=== PATIENT | female | born 1970 | race Two or more races ===

== ENCOUNTER 2024-07-05 09:19 | Emergency (ER) | payer OTHER ==
[~2024-07-05] VITALS: Ht 165.1 cm; Wt 104.4 kg
[2024-07-05 09:41] VITALS: BP 154/80; PULSE 70; RESP 20; TEMP 97; O2SAT 97
--- NOTE | 2024-07-05 09:46 | ED.PDOC ---
General HPI Comments A 54 YEAR OLD FEMALE PRESENTS TO THE ED WITH COMPLAINT OF RIGHT FLANK PAIN. PATIENT STATES SHE HAS BEEN EXPERIENCING RIGHT-SIDED FLANK PAIN THAT RADIATES TO HER RIGHT MIDDLE ABDOMEN OFF AND ON FOR THE PAST 1 YEAR, BUT NOTES IT STARTED AGAIN OVER THE PAST 2-3 DAYS. PATIENT ALSO NOTES SHE HAS A BURNING SENSATION WHEN URINATING. PATIENT DENIES HEMATURIA, VAGINAL DISCHARGE, FEVER, CHILLS, SHORTNESS OF BREATH, CHEST PAIN, NAUSEA, VOMITING, HEADACHE, OR OTHER COMPLAINTS. NO OTHER SYMPTOMS OR MODIFYING FACTORS AT THIS TIME. PATIENT IS ALERT, ORIENTED X 4, AND HAS STEADY GAIT. Chief Complaint: Flank Pain Time Seen by MD: 09:21 Reviewed notes: Nurses Notes, Medications, Allergies Allergies: Coded Allergies: NO KNOWN ALLERGIES (Unverified , 07/05/24) Home Meds Active Scripts Gabapentin (Gabapentin) 300 Mg Cap, 1 CAP PO BID, #20 CAP Prov:JULISA MASSEY 07/05/24 Naproxen (Naproxen) 500 Mg Tab, 500 MG PO BID, #30 TAB Prov:JULISA MASSEY 07/05/24 Information Source: Patient Mode of Arrival: Ambulatory Severity: Moderate Inability to void: None Timing: Days Duration: Intermittent, Days Prehospital treatment: None Onset: Spontaneous Symptoms: Dysuria, Other (RIGHT FLANK PAIN) History of: None Location: (R) Flank Modifying factors: None associated signs and symptoms: None Past Medical History Past Medical History (Other): CHRONIC LOWER BACK PAIN AND RIGHT OVARIAN CYST. Surgical History: Denies all surgeries ENGRAVER RUBBER History: No Pertinent ENGRAVER RUBBER History Family History Family History: Reviewed,noncontributory to illness Social History Smoker: Non-Smoker Alcohol: Denies ETOH Use Drugs: Denies Drug Use Lives In: Home Constitutional: denies: chills, diaphoresis, fatigue, fever, malaise, sweats, weakness, others EENTM: denies: blurred vision, double vision, ear bleeding, ear discharge, ear drainage, ear pain, ear ringing, eye pain, eye redness, hearing loss, mouth pain, mouth swelling, nasal discharge, nose bleeding, nose congestion, nose pain, photophobia, tearing, throat pain, throat swelling, voice changes, others Respiratory: denies: cough, hemoptysis, orthopnea, SOB at rest, shortness of breath, SOB with excertion, stridor, wheezing, others Cardiovascular: denies: chest pain, dizzy spells, diaphoresis, Dyspnea on exertion, edema, irregular heart beat, left arm pain, lightheadedness, palpi tations, PND, syncope, others Gastrointestinal: reports: abdominal pain (RIGHT MIDDLE ABDOMINAL); denies: abdomen distended, blood streaked bowels, constipated, diarrhea, dysphagia, difficulty swallowing, hematemesis, melena, nausea, poor appetite, poor fluid intake, rectal bleeding, rectal pain, vomiting, others Genitourinary: reports: flank pain (RIGHT FLANK PAIN); denies: abnormal vagina bleeding, burning, dyspareunia, dysuria, frequency, hematuria, incontinence, pain, , vagina discharge, urgency, others Neurological: denies: dizziness, fainting, headache, left sided numbness, left sided weakness, numbness, paresthesia, pre-existing deficit, right sided numbness, right sided weakness, seizure, speech problems, tingling, tremors, weakness, others Musculoskeletal: denies: back pain, gout, joint pain, joint swelling, muscle pain, muscle stiffness, neck pain, others Integumetry: denies: bruises, change in color, change in hair/nails, dryness, laceration, lesions, lumps, rash, wounds, others Allergic/Immunocompromised: denies: Difficulty Healing, Frequent Infections, Hives, Itching, others Hematologic/Lymphatic: denies: anemia, blood clots, easy bleeding, easy bruising, swollen glands, others Endocrine: denies: excessive hunger, excessive sweating, excessive thirst, excessive urination, flushing, intolerance to cold, intolerance to heat, unexplained weight gain, unexplained weight loss, others Psychiatric: denies: anxiety, bipolar disorder, depression, hopeless, panic disorder, schizophrenia, sleepless, suicidal, others All Other Systems: Reviewed and Negative Physical Exam General Appearance: Mild Distress, Obese, Other (ANXIOUS ) HEENT: Normal ENT Inspection, PERRL/EOMI, Pharynx Normal, TMs Normal Neck: Full Range of Motion, Non-Tender, Normal, Normal Inspection Respiratory: Chest Non-Tender, Lungs Clear, No Accessory Muscle Use, No Respiratory Distress, Normal Breath Sounds Cardiovascular: No Edema, No JVD, No Murmur, No Gallop, Normal Peripheral Pulses, Regular Rate/Rhythm Breast Exam: Deferred Gastrointestinal: No Organomegaly, No Pulsatile Mass, Normal Bowel Sounds, Soft, Tenderness (RIGHYT FLANK TO RIGHT MIDDLE ABD, NO GUARDING AND REBOUND TENDERNESS. ) Genitalia: Deferred Pelvic: Normal External Exam Rectal: Deferred Extremities: No calf tenderness, Normal capillary refill, Normal inspection, Normal range of motion, Non-tender, No pedal edema Musculoskeletal : Location: Right Extremity Location: Back Apperance: Tenderness: Moderate (RIGHT MIDDLE BACK TO RIGHT FLANK, NO CVA TENDERNESS. 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 Was a procedure done?: No Differential Diagnosis Kidney stone (Female): Musculoskeletal pain, Pyelonephritis, Renal failure, Strain, Urolithiasis Kidney stone (Male): N/A Penile/Scrotal: N/A Urinary Problem (Male): N/A Urinary Problem (Female): Pyelonephritis, Urolithiasis, UTI, Vaginitis X-Ray, Labs, Meds, VS Vital Signs Date Time Temp Pulse Resp B/P (MAP) Pulse Ox O2 Delivery O2 Flow Rate FiO2 07/05/24 09:41 70 20 97 Room Air 07/05/24 09:41 97.0 70 20 154/80 (104) 97 97.0 07/05/24 09:34 97.0 70 20 154/80 (104) 97 97.0 Lab Test 07/05/24 10:00 07/05/24 09:30 07/05/24 09:26 Range/Units White Blood Count 7.4 4.4-10.8 10^3/uL Red Blood Count 5.00 4.0-5.20 10^6/uL Hemoglobin 14.7 12.2-16.2 g/dL Hematocrit 43.2 36.0-46.0 % Mean Corpuscular Volume 86.4 80.0-100.0 fL Mean Corpuscular Hemoglobin 29.3 28.0-32.0 pg Mean Corpuscular Hemoglobin Concent 33.9 32.0-36.0 g/dL Red Cell Distribution Width 15.8 H 11.8-14.3 % Platelet Count 338 140-450 10^3/uL Mean Platelet Volume 7.5 6.9-10.8 fL Neutrophils (%) (Auto) 44.8 37.0-80.0 % Lymphocytes (%) (Auto) 47.7 10.0-50.0 % Monocytes (%) (Auto) 5.3 0.0-12.0 % Eosinophils (%) (Auto) 1.5 0.0-7.0 % Basophils (%) (Auto) 0.7 0.0-2.0 % Neutrophils # (Auto) 3.3 1.6-8.6 10 ^3/uL Lymphocytes # (Auto) 3.5 0.4-5.4 10 ^3/uL Monocytes # (Auto) 0.4 0-1.3 10 ^3/uL Eosinophils # (Auto) 0.1 0-0.8 10 ^3/uL Basophils # (Auto) 0.1 0-0.2 10 ^3/uL Nucleated Red Blood Cells 0.1 % Sodium Level 139 136-145 mmol/L Potassium Level 4.1 3.5-5.1 mmol/L Chloride Level 110 H 98-107 mmol/L Carbon Dioxide Level 23 20-31 mmol/L Anion Gap 6 5-15 Blood Urea Nitrogen 17 9-23 mg/dL Creatinine 0.85 0.550-1.02 mg/dL Glomerular Filtration Rate Calc 81 >90 mL/min BUN/Creatinine Ratio 20.0 10.0-20.0 Serum Glucose 166 H 74-106 mg/dL Calcium Level 10.5 H 8.7-10.4 mg/dL Total Bilirubin 0.6 0.2-1.0 mg/dL Aspartate Amino Transferase (AST) 27 13-40 U/L Alanine Aminotransferase (ALT) 50 H 7-40 U/L Alkaline Phosphatase 77 46-116 U/L Total Protein 7.7 5.7-8.2 g/dL Albumin 5.0 H 3.2-4.8 g/dL Lipase 45 12-53 U/L POC Glucose 146 H 70-106 mg/dl Urine Color Light-yellow Yellow Urine Clarity Clear Clear Urine pH 5.5 5.0-9.0 Urine Specific Crawford 1.012 1.001-1.035 Urine Protein Negative Negative Urine Ketones Negative Negative Urine Blood Negative Negative /uL Urine Nitrite Negative Negative Urine Bilirubin Negative Negative Urine Urobilinogen Normal Negative mg/dL Urine Leukocyte Esterase Negative Negative /uL Urine RBC 1 0 - 4 /hpf Urine Microscopic WBC 1 0-5 /HPF Urine Squamous Epithelial Cells None seen <5 /hpf Urine Bacteria None seen None Seen /hpf Urine Glucose Normal Normal mg/dL Current Medications Medications (Trade) Dose Ordered Sig/Todd Route Start Time Stop Time Status Last Admin Ketorolac Tromethamine (Toradol Injection) 60 mg ONCE ONCE IM 07/05/24 11:00 07/05/24 11:01 DC 07/05/24 11:07 Procedure: CT CT AB PEL WO CON-NO ORAL OR IV 07/05/2024 10:17 AM Indication: RIGHT FLANK PAIN TO RIGHT SIDE ABD Comparison Study: None Technique: Axial images were obtained and reformatted in coronal and sagittal planes. All CT scans at this medical facility are performed using dose modulation techniques as appropriate to a performed exam including the following: Automated exposure control was utilized; adjustment of the MA and/or KV according to patient size; and use of iterative reconstruction technique. CT Dose: CTDI volume is 24.58 mGy. Dose-length product is 1352.33 mGy*cm FINDINGS: Lower Chest: Unremarkable. Hepatobiliary: Mild hepatomegaly and hepatic steatosis. No calcified gallstones. No intrahepatic or extrahepatic ductal dilatation. Spleen: Mildly enlarged, 13 cm in craniocaudal Pancreas: Unremarkable. Adrenal Glands: Unremarkable. tract: The kidneys are normal in size bilaterally without hydronephrosis or nephrolithiasis. The urinary bladder is unremarkable. GI tract: The stomach is grossly normal in appearance. No evidence of small bowel obstruction. There is descending and sigmoid diverticulosis without diverticulitis. The appendix is normal. Lymphatics: No mesenteric, retroperitoneal or periportal lymphadenopathy. Vasculature: Aorta is normal in caliber. Scattered calcified plaques are noted. Pelvic Organs: Elongated anteverted uterus with some fibrotic strands extending from uterine fundus to the abdominal wall likely adhesions related to prior surgery such as . Correlate with history. A 2.4 cm right ovarian cyst noted. Bones/soft tissues: No acute abnormality. Multilevel degenerative disc disease and posterior facet arthropathy of the lumbar spine. Mild grade 1 anterolisthesis of L4 on L5 without pars defects. Small fat containing umbilical hernia. A subcentimeter sclerotic focus noted in the right acetabulum which may reflect a benign bone island in the absence of known malignancy. Several subcentimeter injection granulomas are seen in the bilateral buttocks. Mild degenerative changes of the bilateral sacroiliac joints noted. Other: None. IMPRESSION: 1. No CT evidence of acute abnormality in the abdomen and pelvis. No hydronephrosis or ureterolithiasis. The appendix is normal. 2. A 2.4 cm right ovarian cyst is noted. Recommend follow-up by ultrasound in the 6-12 weeks. 3. Hepatomegaly and hepatic steatosis. 4. Mild splenomegaly. ATED BY: JUDY WOODRUFF MD DICTATED DATE/TIME: 07/05/241108 SIGNED BY: JUDY WOODRUFF MD SIGNED DATE/TIME: 07/05/241108 CC: X-Ray, Labs, Meds, VS Comment EXTERNAL MEDICAL RECORDS REVIEWED: [NONE] INDEPENDENT HISTORIANS: [NONE] SOCIAL DETERMINANTS OF HEALTH: [NONE] LABS ORDERED: CBC, CMP, UA, LIPASE REVIEWED AND INTERPRETED RESULTS: NORMAL IMAGING ORDERED: NONE TREATMENTS ORDERED: TORADOL 60MG IM PROCEDURES PERFORMED: NONE CRITICAL CARE TIME: NONE I HAVE DISCUSSED THE PATIENT WITH THE ATTENDING PHYSICIAN DR. JIANG AND HE AGREES WITH THE PATIENT'S PLAN OF CARE AND DISPOSITION. BASED ON HISTORY OF PRESENT ILLNESS, AND PHYSICAL EXAM, PATIENT WILL BE DISCHARGED HOME. DISCUSSED PLAN FOR DISCHARGE HOME WITH RX: NAPROXEN AND GABPETIN. MEDICATION WARNINGS GIVEN. SHARED DECISION MAKING: PATIENT INSTRUCTED TO FOLLOW UP WITH PRIMARY CARE PROVIDER IN 1-2 DAYS FOR RE-EVALUATION OF SYMPTOMS. PATIENT VERBALIZES UNDERSTANDING TO RETURN TO ED FOR NEW OR WORSENING SYMPTOMS OR IF FOLLOW UP WITH PCP CANNOT BE OBTAINED. PATIENT FEELS COMFORTABLE GOING HOME AT THIS TIME. ALL QUESTIONS ADDRESSED AT TIME OF DISCHARGE. Images Reviewed?: Images reviewed and evaluated by me Time of 1ST Reevaluation: 11:33 Reevaluation 1ST: Improved Patient Education/Counseling: Diagnosis, Treatment, Need For Follow Up Family Education/Counseling: Diagnosis, Treatment, Need For Follow Up Medical Screening: No EMC Exist At This Time Departure 1 Departure Time of Disposition: 11:33 Impression: Primary Impression: Right flank pain Additional Impressions: Right ovarian cyst DDD (degenerative disc disease), lumbar Qualified Codes: M51.360 - Other intervertebral disc degeneration, lumbar region with discogenic back pain only Disposition: 01 HOME / SELF CARE / HOMELESS Condition: Stable Additional Instructions: FOLLOW-UP WITH PCP IN 1 TO 2 DAYS. TAKE MEDICATIONS PRESCRIBED. RETURN TO ED FOR ANY NEW OR WORSENING SYMPTOMS. e-Prescriptions Gabapentin (Gabapentin) 300 Mg Cap 1 CAP PO BID, #20 CAP Prov: JULISA MASSEY 07/05/24 Naproxen (Naproxen) 500 Mg Tab 500 MG PO BID, #30 TAB Prov: JULISA MASSEY 07/05/24 Discharged With: Self, Relative Critical Care Note Critical Care Time?: No Stability Stability form required: No I personally scribed for JULISA MASSEY ([email or web address]) on 07/05/24 at 10:18. Electronically submitted by Bin Johnson ([place]). I personally scribed for JULISA MASSEY ([email or web address]) on 07/05/24 at 11:22. Electronically submitted by Bin Johnson ([email or web address]). JULISA MASSEY Jul 05, 2024 09:46
[2024-07-05 10:15] LABS: Basophils # (auto) 0.1 10 ^3/uL (0-0.2); Basophils % (auto) 0.7 % (0.0-2.0); Eosinophils # (auto) 0.1 10 ^3/uL (0-0.8); Eosinophils % (auto) 1.5 % (0.0-7.0); Hematocrit 43.2 % (36.0-46.0); Hemoglobin 14.7 g/dL (12.2-16.2); Lymphocytes # (auto) 3.5 10 ^3/uL (0.4-5.4); Lymphocytes % (auto) 47.7 % (10.0-50.0); Mean Corpuscular Hemoglobin 29.3 pg (28.0-32.0); Mean Corpuscular Hgb Conc. 33.9 g/dL (32.0-36.0); Mean Corpuscular Volume 86.4 fL (80.0-100.0); Monocytes # (auto) 0.4 10 ^3/uL (0-1.3); Monocytes % (auto) 5.3 % (0.0-12.0); Neutrophils # (auto) 3.3 10 ^3/uL (1.6-8.6); Neutrophils % (auto) 44.8 % (37.0-80.0); Nucleated Red Blood Cells % 0.1 %; Platelet Count (auto) 338 10^3/uL (140-450); Red Cell Distribution Width 15.8 % (11.8-14.3); White Blood Cell 7.4 10^3/uL (4.4-10.8)
[2024-07-05 10:37] LABS: Alanine Aminotransferase 50 U/L (7-40); Alkaline Phosphatase 77 U/L (46-116); Anion Gap 6 (5-15); Aspartate Aminotransferase 27 U/L (13-40); Bilirubin, Total 0.6 mg/dL (0.2-1.0); Blood Urea Nitrogen 17 mg/dL (9-23); Calcium 10.5 mg/dL (8.7-10.4); Carbon Dioxide 23 mmol/L (20-31); Chloride 110 mmol/L (98-107); Glucose 166 mg/dL (74-106); Lipase 45 U/L (12-53); Potassium 4.1 mmol/L (3.5-5.1); Sodium 139 mmol/L (136-145); Total Protein 7.7 g/dL (5.7-8.2)
[2024-07-05 10:42] LABS: Urine Bacteria None Seen /hpf (None Seen)
[2024-07-05 10:49] LABS: Urine Blood Negative /uL (Negative); Urine Clarity Clear (Clear); Urine Color Light-Yellow (Yellow); Urine Protein, UAD Negative (Negative); Urine Specific Gravity 1.012 (1.001-1.035); Urine Squamous Epithelial Cell None Seen /hpf (<5); Urine Urobilinogen Normal (Negative); Urine WBC 1 /HPF (0-5); Urine pH 5.5 (5.0-9.0)
[2024-07-05] MEDS: KETOROLAC TROMETH 60MG/2ML VIAL IM ONE (11:07)
--- NOTE | 2024-07-05 11:12 | DVH ---
Procedure: CT CT AB PEL WO CON-NO ORAL OR IV 07/05/2024 10:17 AM Indication: RIGHT FLANK PAIN TO RIGHT SIDE ABD Comparison Study: None Technique: Axial images were obtained and reformatted in coronal and sagittal planes. All CT scans at this medical facility are performed using dose modulation techniques as appropriate to a performed e xam including the following: Automated exposure control was utilized; adjustment of the MA and/or KV according to patient size; and use of iterative reconstruction technique. CT Dose: CTDI volume is 24. 58 mGy. Dose-length product is 1352.33 mGy*cm FINDINGS: Lower Chest: Unremarkable. Hepatobiliary: Mild hepatomegaly and hepatic steatosis. No calcified gallstones. No intrahepatic or extrahepatic ductal dilatation. Spleen: Mildly enlarged, 13 cm in craniocaudal Pancreas: Unremarkable. Adrenal Glands: Unremarkable. tract: The kidneys are normal in size bilaterally without hydronephrosis or nephrolithiasis. The u rinary bladder is unremarkable. GI tract: The stomach is grossly normal in appearance. No evidence of small bowel obstruction. There is descending and sigmoid diverticulosis without diverticulitis. The appendix is normal. Lymphatics: No mesenteric, retroperitoneal or periportal lymphadenopathy. Vasculature: Aorta is normal in caliber. Scattered calcified plaques are noted. Pelvic Organs: Elongated anteverted uterus with some fibrotic strands extending from uterine fundus t o the abdominal wall likely adhesions related to prior surgery such as . Correlate with his tory. A 2.4 cm right ovarian cyst noted. Bones/soft tissues: No acute abnormality. Multilevel degenerative disc disease and posterior facet a rthropathy of the lumbar spine. Mild grade 1 anterolisthesis of L4 on L5 without pars defects. Smal l fat containing umbilical hernia. A subcentimeter sclerotic focus noted in the right acetabulum whic h may reflect a benign bone island in the absence of known malignancy. Several subcentimeter injectio n granulomas are seen in the bilateral buttocks. Mild degenerative changes of the bilateral sacroilia c joints noted. Other: None. IMPRESSION: 1. No CT evidence of acute abnormality in the abdomen and pelvis. No hydronephrosis or ureterolithias is. The appendix is normal. 2. A 2.4 cm right ovarian cyst is noted. Recommend follow-up by ultrasound in the 6-12 weeks. 3. Hepatomegaly and hepatic steatosis. 4. Mild splenomegaly.
[2024-07-05] MEDS ORDERED: GABA-1250 PO (11:30)
[2024-07-05] MEDS ORDERED: NAPR-746 PO (11:30)
== END 2024-07-05 11:35 | disposition home or self-care (01) ==
LOC: ER 09:19
DX: N83.201 Unspecified ovarian cyst, right side (principal); M51.369 Other intervertebral disc degeneration, lumbar region without mention of lumbar back pain or lower extremity pain; Z79.899 Other long term (current) drug therapy
CPT/HCPCS: 36415; 74176; 80053; 81001; 82947; 83690; 85025; 96372; 99285; J1885; 82962